=== PATIENT | male | born 1960 | race Caucasian/White ===

== ENCOUNTER 2016-03-28 07:30 | Day surgery (SDC) | payer OTHER ==
[2016-03-23 14:42] VITALS: BMI 29.7
--- NOTE | 2016-03-28 10:08 | HP ---
History & Physical Update - History History: No Change - Physical Physical: No Change - Assessment Assessment: No Change - Plan Plan: No Change
[2016-03-28] MEDS ORDERED: PROPOFOL 20 ML ONE ×2 (10:31→10:32)
[2016-03-28] MEDS ORDERED: DEXAMETHASONE SOD PHOSPHATE 4 MG/1 ML VIAL ONE (10:31)
[2016-03-28] MEDS ORDERED: SODIUM CHLORIDE 0.9% P/F 10 ML VIAL IJ ONE (10:31)
[2016-03-28] MEDS ORDERED: ceFAZolin SODIUM 1 GM VIAL ONE (10:31)
[2016-03-28] MEDS ORDERED: KETOROLAC TROMETHAMINE 30 MG/1 ML VIAL ONE (10:31)
[2016-03-28] MEDS ORDERED: MIDAZOLAM HCL 2 MG/2 ML SINGLE DOSE VIAL ONE (10:32)
[2016-03-28] MEDS ORDERED: ROCURONIUM BROMIDE 50 MG/5 ML VIAL ONE ×2 (10:32→12:50)
[2016-03-28] MEDS ORDERED: BUPIVACAINE HCL/PF 0.5% (5MG/ML) 10 ML VIAL ONE (10:51)
[2016-03-28] MEDS ORDERED: oxyCODONE HCL 5 MG TABLET PO PRN (10:56)
[2016-03-28] MEDS ORDERED: ONDANSETRON 4 MG/2 ML VIAL IVPUSH PRN (10:56)
[2016-03-28] MEDS ORDERED: LACTATED RINGERS SOLUTION 1,000 ML IV SCH (11:00)
[2016-03-28] MEDS ORDERED: ceFAZolin SODIUM 1 GM VIAL IVPB ONE (11:22)
[2016-03-28] MEDS ORDERED: BUPIVACAINE HCL/PF 0.5% (5MG/ML) 10 ML VIAL IJ ONE ×2 (11:38)
[2016-03-28] MEDS ORDERED: NEOSTIGMINE METHYLSULFATE 0.5 MG/ML - 10 ML MDV ONE (13:07)
[2016-03-28] MEDS ORDERED: GLYCOPYRROLATE 0.2 MG/1 ML VIAL ONE (13:07)
--- NOTE | 2016-03-28 13:31 | SURG ---
Surgery Tying Machine Operator Lumber Note Tying Machine Operator Lumber: Marshall Irving PA-C Date of Service: 03/28/16 Diagnosis: Left incarcerated hernia Procedure: Robotic repair left inguinal hernia (incarcerated, indirect) with mesh I was present for the entirety of the operative procedure. For further detail, please refer to operative report. Visit type - Case Type Case Type: Scheduled Admission - New patient This patient is new to me today: Yes Date on this admission: 03/28/16
[2016-03-28] MEDS ORDERED: ACETAMINOPHEN 1000 MG/100 ML VIAL (NON FORMULARY) IVPB ONE (13:32)
--- NOTE | 2016-03-28 13:32 | OP ---
Operative Note - Note: Operative Date: 03/28/16 Pre-Operative Diagnosis: Left inguinal hernia Operation: Robotic LIH repair with mesh Findings: indirect LIH containing incarcerated sigmoid colon Implants: Progrip 15 x 11 cm mesh Surgeon: Abram Álvarez Hoop Rolls Operator: Marshall Irving Anesthesiologist/MANAGER PROGRAMS: Reuben Chandra Jr. Anesthesia: General Estimated Blood Loss (mls): 2 Operative Report Dictated: Yes
[2016-03-28 15:17] VITALS: TEMP 98.3
--- NOTE | 2016-03-28 16:08 | OP ---
DATE OF OPERATION: 03/28/2016 PROCEDURE: Robotic-assisted laparoscopic left inguinal hernia repair with mesh. PREOPERATIVE DIAGNOSIS: Left inguinal hernia. POSTOPERATIVE DIAGNOSIS: Left inguinal hernia. SURGEON: Abram Álvarez MD METAL COATER OPERATOR: KAYCE Solano ANESTHESIA: General endotracheal. FINDINGS AND PROCEDURE: This is a 55-year-old male who presents with a reducible left inguinal hernia associated with pain on exertion, so patient was advised elective inguinal hernia repair and consent was obtained after discussing the risks, benefits and alternatives of the procedure. DESCRIPTION: Patient was brought to the operating room and placed in supine position. General endotracheal anesthesia was administered. A Posadas catheter was inserted. The abdomen was prepped and draped in the usual sterile fashion. Using 0.5% Marcaine, local anesthesia was administered to the proposed incision site. The peritoneal cavity was entered via an 8 mm supraumbilical transverse incision using the Veress needle technique. Pneumoperitoneum was established. An 8-mm port was inserted into the peritoneal cavity. An 8-mm 3D 30-degree scope was inserted into the peritoneal cavity and the area was carefully inspected to rule out inadvertent injury. Two 8-mm ports were inserted 7-mm away from the umbilical port on the right and left side at the same level under direct vision. The patient was placed in deep Trendelenburg position. An incarcerated left inguinal hernia containing a loop of sigmoid colon was noted. A very small depression of the right inguinal canal was noted, which did not constitute and inguinal hernia. The target organ was set and the robotic arms were docked. An EndoWrist jin connected to monopolar cautery was inserted at the right-sided port and a fenestrated bipolar grasper was inserted at the left-sided port. The undersigned then scrubbed out to commence the console part of the procedure. The sigmoid colon was completely reduced back to the peritoneal cavity. A 15 cm incision of the peritoneum was made using the EndoWrist jin at the level of the anterior superior iliac spine. Blunt and sharp dissection was done to create the peritoneal working space. This was carried laterally towards the anterior superior iliac spine, medially towards the symphysis pubis, and down to the bladder. Careful further dissection using the inferior epigastric vessel as a landmark was done towards the inguinal hernia sac. The hernia sac was carefully isolated away from the spermatic cord structures towards and into the inguinal canal. This was carefully reduced back to the peritoneal cavity with at least 7 cm away from the internal ring defect. After this was completed, the severely attenuated internal ring was partially tightened using 1 [id number] V-Loc number 1 nonabsorbable suture. A 15 x 11 ProGrip mesh was then deployed to cover the hernia defect with at least 5 cm overlap circumferentially. After the deployment was deemed satisfactory, the parietal peritoneum was the apposed with a continuous V-Loc 2-0 absorbable suture. The peritoneal cavity was again inspected. It was noted to be free of active bleeding and free of any injury. All the instruments were removed and the robotic arms were undocked. The pneumoperitoneum was evacuated and the ports were removed. The wounds were closed with subcuticular Biosyn 4-0 sutures reinforced with Dermabond. Posaads catheter was removed and the patient was successfully extubated. The patient was transferred to the post-anesthesia care unit in satisfactory condition. Estimated blood loss was about 2 mL. Wound class clean. The patient received 1 g of Ancef prior to the start of the procedure. Alessia [id number]
[2016-03-28] MEDS ORDERED: oxyCODONE HCL 5 MG TABLET ONE (17:20)
[2016-03-28 18:16] VITALS: BP 117/74; PULSE 80
== END 2016-03-28 18:05 | disposition home or self-care (01) ==
LOC: JASU-SURG 07:30
PROVIDERS: ATTEND Surgery
PROC: 8E0W4CZ Robotic Assisted Procedure of Trunk Region, Percutaneous Endoscopic Approach (ICD-10-PCS; 2016-03-28)
PROC: 0YU64JZ Supplement Left Inguinal Region with Synthetic Substitute, Percutaneous Endoscopic Approach (ICD-10-PCS; principal; 2016-03-28 09:30)
DX: K40.90 Unilateral inguinal hernia, without obstruction or gangrene, not specified as recurrent (principal)
CPT/HCPCS: 49650; S2900; 94760; J0131